=== PATIENT | male | born 1965 | race Caucasian/White ===

== ENCOUNTER 2019-11-10 20:00 | Emergency (ER) | payer OTHER ==
[~2019-11-10] VITALS: Ht 175.3 cm; Wt 79.4 kg
[2019-11-10 20:13] VITALS: BP_SYST 130
--- NOTE | 2019-11-10 22:40 | NUR ---
[facility] rails up. Report given to [facility].
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
--- NOTE | 2019-11-10 22:50 | NUR ---
ER at bedside examining patient.
[2019-11-10 23:10] VITALS: BP_SYST 120
--- NOTE | 2019-11-10 23:10 | NUR ---
Patient given written and verbal discharge instructions and verbalizes understanding. ER MD discussed with patient the results and treatment provided. Patient in stable condition. ID arm band removed. Rx of given. Patient educated on pain management and to follow up with PMD. Pain Scale 0/10 Opportunity for questions provided and answered.
== END 2019-11-10 23:10 | disposition home or self-care (01) ==
LOC: SED 20:00
DX: S09.90XA Unspecified injury of head, initial encounter (principal); V49.49XA Driver injured in collision with other motor vehicles in traffic accident, initial encounter; Y93.89 Activity, other specified; Y92.413 State road as the place of occurrence of the external cause; Y99.8 Other external cause status
CPT/HCPCS: 70450-TC; 71046-TC; 99284